=== PATIENT | male | born 1955 | race Caucasian/White ===

== ENCOUNTER 2020-11-13 18:17 | Observation (INO) | payer OTHER ==
[~2020-11-13] VITALS: Ht 182.9 cm; Wt 103.6 kg
[2020-11-13 19:07] LABS: BASOPHILS ABSOLUTE AUTO 0.06 K/mm3 (0.00-0.23); BASOPHILS PERCENT AUTO 0 % (0-2); EOSINOPHILS ABSOLUTE AUTO 0.06 K/mm3 (0.00-0.68); EOSINOPHILS PERCENT AUTO 0 % (0-6); Hematocrit 44.7 % (37.0-53.0); Hemoglobin 14.9 g/dL (13.5-17.5); IMMATURE GRAN ABSOLUTE AUTO 0.08 K/mm3 (0.00-0.10); IMMATURE GRAN PERCENT AUTO 1 % (0-1); LYMPHOCYTES ABSOLUTE AUTO 2.53 K/mm3 (0.84-5.20); LYMPHOCYTES PERCENT AUTO 16 % (21-46); MONOCYTES ABSOLUTE AUTO 1.49 K/mm3 (0.16-1.47); MONOCYTES PERCENT AUTO 9 % (4-13); Mean Corpuscular HGB 32.9 pg (26.0-34.0); Mean Corpuscular HGB Conc 33.3 g/dL (31.5-36.5); Mean Corpuscular Volume 99 fL (80-100); Mean Platelet Volume 9.8 fL (9.1-12.4); NEUTROPHILS ABSOLUTE AUTO 11.85 K/mm3 (1.96-9.15); NEUTROPHILS PERCENT AUTO 74 % (41-73); Platelet Count 274 K/mm3 (150-400); RDW Coefficient Variation 13.1 % (11.7-14.2); RDW Standard Deviation 47.4 fL (35.1-46.3); Red Blood Cell Count 4.53 M/mm3 (4.30-5.90); White Blood Cell Count 16.07 K/mm3 (4.00-11.30)
[2020-11-13 19:26] LABS: Albumin, Blood 3.3 g/dL (3.4-5.0); Albumin/Globulin Ratio 0.7 (0.8-1.8); Bilirubin, Total 0.7 mg/dL (0.1-1.0); Calcium, Blood 8.9 mg/dL (8.5-10.1); Creatinine, Blood 4.08 mg/dL (0.60-1.20); Globulin, Blood 4.9 g/dL (2.2-4.0); Potassium, Blood 4.9 mmol/L (3.5-5.5); Total Protein, Blood 8.2 g/dL (6.4-8.2)
[2020-11-13 23:44] LABS: SARS-Cov-2 (COVID-19) PCR, MMC NEGATIVE (NEGATIVE)
[2020-11-14] MEDS ORDERED: LOSA25 PO ×2 (02:35)
[2020-11-14] MEDS ORDERED: Lopressor 25 mg25 MG PO (02:36)
[2020-11-14] MEDS ORDERED: ZOCOR20 MG PO (02:36)
[2020-11-14] MEDS ORDERED: OMEP20ER PO (02:38)
[2020-11-14] MEDS ORDERED: SODBIC650 PO (02:39)
[2020-11-14] MEDS ORDERED: VIT D (02:40)
[2020-11-14] MEDS ORDERED: ASPI81CH PO (02:40)
[2020-11-14] MEDS ORDERED: DOCU100 PO (02:42)
[2020-11-14 08:38] LABS: BASOPHILS ABSOLUTE AUTO 0.08 K/mm3 (0.00-0.23); BASOPHILS PERCENT AUTO 1 % (0-2); EOSINOPHILS ABSOLUTE AUTO 0.19 K/mm3 (0.00-0.68); EOSINOPHILS PERCENT AUTO 2 % (0-6); Hematocrit 38.6 % (37.0-53.0); Hemoglobin 12.5 g/dL (13.5-17.5); IMMATURE GRAN ABSOLUTE AUTO 0.04 K/mm3 (0.00-0.10); IMMATURE GRAN PERCENT AUTO 0 % (0-1); LYMPHOCYTES ABSOLUTE AUTO 2.35 K/mm3 (0.84-5.20); LYMPHOCYTES PERCENT AUTO 20 % (21-46); MONOCYTES ABSOLUTE AUTO 1.23 K/mm3 (0.16-1.47); MONOCYTES PERCENT AUTO 10 % (4-13); Mean Corpuscular HGB 32.3 pg (26.0-34.0); Mean Corpuscular HGB Conc 32.4 g/dL (31.5-36.5); Mean Corpuscular Volume 100 fL (80-100); Mean Platelet Volume 10.1 fL (9.1-12.4); NEUTROPHILS ABSOLUTE AUTO 8.12 K/mm3 (1.96-9.15); NEUTROPHILS PERCENT AUTO 68 % (41-73); Platelet Count 205 K/mm3 (150-400); RDW Coefficient Variation 13.1 % (11.7-14.2); RDW Standard Deviation 48.1 fL (35.1-46.3); Red Blood Cell Count 3.87 M/mm3 (4.30-5.90); White Blood Cell Count 12.01 K/mm3 (4.00-11.30)
[2020-11-14 08:55] LABS: Albumin, Blood 2.6 g/dL (3.4-5.0); Albumin/Globulin Ratio 0.7 (0.8-1.8); Bilirubin, Total 0.6 mg/dL (0.1-1.0); Bun/Creatinine Ratio 12.3 (12.0-20.0); Creatinine, Blood 4.06 mg/dL (0.60-1.20); Globulin, Blood 3.9 g/dL (2.2-4.0); Potassium, Blood 5.1 mmol/L (3.5-5.5); Total Protein, Blood 6.5 g/dL (6.4-8.2)
--- NOTE | 2020-11-14 14:26 | NUR ---
PT WENT TO OR AT AROUND 1400.
--- NOTE | 2020-11-14 15:33 | NUR ---
11/14/20 1533 Sana Larios PRE[facility] ANITBIOTICS, PATIENT IS ON SCHEDULED UNISYN.
[2020-11-14] MEDS ORDERED: HYDR1TAB94 PO (17:31)
[2020-11-14] MEDS ORDERED: AMOCLA500 PO (17:32)
--- NOTE | 2020-11-14 18:08 | NUR ---
SHIFT SUMMARY AND RETURN FROM OR. RECEIVED PT FROM OR FOR AN APPY AT APPROX. 1600. RECEIVED BEDSIDE REPORT FROM PACU. PT IS A&O X4, SITTING UP IN BED, TOLERATING ICE CHIPS, JELLO AND PUDDING W/O COMPLAINT OF N/V. PT IS CURRENTLY ON 2.5 L O2 VIA NC. LUNGS HAVE SOME COARSE CRACKLES IN RIGHT UPPER LOBE AND LOWER LOBES ARE DIMINISHED. PT HAS X3 LAP SITES WITH GAUZE AND CLEAR DRESSING THAT ARE C/D/I. PT IS INDEPENDENT IN ROOM. PT IS MEDICATED PER EMAR FOR PAIN. CALL LIGHT WITHIN REACH.
--- NOTE | 2020-11-15 05:29 | NUR ---
PATIENT WAS DISCHARGED AT 2014 WITH DISCHARGE EDUCATION, FOLLOW UP APPOINTMENTS, AND PRESCRIPTIONS FROM [facility] NURSE. PATIENT STATED THAT HE UNDERSTOOD ALL DISCHARGE INSTRUCTIONS. PATIENT'S LAST SET OF VITALS WERE TAKEN AT 1945 (SEE . PATIENT WENT DOWNSTAIRS VIA WHEELCHAIR TO MEET WHOM PICKED HIM UP TO TAKE HIM HOME. PATIENT WAS STABLE WITH NO SIGNS OF DISTRESS.
== END 2020-11-14 20:15 | disposition home or self-care (01) ==
LOC: ER 18:17 → SURS 23:03
PROVIDERS: Emergency Medicine; Emergency Medicine Emergency Medical Services; Surgery; ADMIT Internal Medicine
PROC: 0DTJ4ZZ Resection of Appendix, Percutaneous Endoscopic Approach (ICD-10-PCS; principal; 2020-11-14 13:45)
DX: K35.891 Other acute appendicitis without perforation, with gangrene (principal); I25.10 Atherosclerotic heart disease of native coronary artery without angina pectoris; R00.1 Bradycardia, unspecified; I72.3 Aneurysm of iliac artery; K57.30 Diverticulosis of large intestine without perforation or abscess without bleeding; F17.210 Nicotine dependence, cigarettes, uncomplicated; I12.9 Hypertensive chronic kidney disease with stage 1 through stage 4 chronic kidney disease, or unspecified chronic kidney disease; N18.4 Chronic kidney disease, stage 4 (severe); Z20.822 Contact with and (suspected) exposure to COVID-19; Z95.5 Presence of coronary angioplasty implant and graft; Z88.8 Allergy status to other drugs, medicaments and biological substances
CPT/HCPCS: 36415; 71045; 80053; 85025; 88304; 93005; 93010; 96365; 96375; 96376; 99285-25; A9270; G0378; J0295; J1100; J1200; J2270; J2405; J2543; J2704; J2765; J3010; J7030; U0004

== ENCOUNTER 2025-01-29 12:58 | Day surgery (SDC) | payer OTHER ==
[~2025-01-29] VITALS: Ht 182.9 cm; Wt 111.9 kg
[~2025-01-29 12:58] MED LIST: AMOCLA500 PO; ASPI81CH PO; ATOR40TA PO; Acetaminophen650 M1 PO; CALC.25 PO; CARV6.25 PO; DOCU100 PO; FURO20 PO; Glycopyrrolate 0.2 MG/ML 1MLVIAL ONE; HYDR1TAB94 PO; LOSA25 PO; LOSA50 PO; Lopressor 25 mg25 MG PO; OMEP20ER PO; Ondansetron HCl 2 MG / ML 2ML Vial ONE; SODBIC650 PO; TICA90TA PO; VELPHORO PO; VIT D; ZOCOR20 MG PO; ePHEDrine Sulfate 50 MG/ML 1ML Injection ONE
[2025-01-29] MEDS ORDERED: NEURONTIN300 MG (13:38)
[2025-01-29] MEDS ORDERED: FENOFIBRATE145 MG (13:38)
[2025-01-29] MEDS ORDERED: TAMS.4ER (13:39)
[2025-01-29] MEDS ORDERED: NS 1,000 ML IV ONE (13:56)
[2025-01-29 15:17] VITALS: BP 94/60
--- NOTE | 2025-01-29 15:42 | NUR ---
01/29/25 1542 DejesusTito PT APPEARS VERY IMPATIENT THREATENING TO PULL HIS IV ON HIS OWN. THIS RN D/C IV BEFORE PT COULD. PT DENIED NEED TO DRINK FLUIDS AND INCISTANT OF GOING HOME. STEPPED OUT OF ROOM TO HAVE PT'S RIDE PULL AROUND TO PT RESTORATIVE REHAB AIDE AREA. UPON RETURNING PT IS DRESSED AND WANTING TO LEAVE. REVIEWED D/C INSTRUCTIONS WITH PT. PT DENIES NEED FOR WHEEL CHAIR AND AMBULATES OUT OF FACILITY TO HIS RIDE.
== END 2025-01-29 15:34 | disposition home or self-care (01) ==
LOC: ORSCSDS 12:58
PROVIDERS: Specialist
PROC: 0DBN8ZX Excision of Sigmoid Colon, Via Natural or Artificial Opening Endoscopic, Diagnostic (ICD-10-PCS; principal; 2025-01-29 14:45)
DX: Z12.11 Encounter for screening for malignant neoplasm of colon (principal); D12.5 Benign neoplasm of sigmoid colon; K57.30 Diverticulosis of large intestine without perforation or abscess without bleeding; K64.8 Other hemorrhoids; Z86.0102 Personal history of hyperplastic colon polyps; I25.2 Old myocardial infarction; E11.22 Type 2 diabetes mellitus with diabetic chronic kidney disease; I12.0 Hypertensive chronic kidney disease with stage 5 chronic kidney disease or end stage renal disease; N18.6 End stage renal disease; Z99.2 Dependence on renal dialysis; N40.0 Benign prostatic hyperplasia without lower urinary tract symptoms; G47.33 Obstructive sleep apnea (adult) (pediatric); Z79.82 Long term (current) use of aspirin; Z79.899 Other long term (current) drug therapy; Z87.891 Personal history of nicotine dependence
CPT/HCPCS: 82947; 84132; 88305; J2003; J2405; J2704; J7030; J7120